=== PATIENT | female | born 1940 | race African-American/Black ===

== ENCOUNTER 2016-09-05 18:25 | Inpatient (IN) | payer OTHER ==
--- NOTE | 2016-09-05 18:35 | EDPHY ---
H & P Time Seen by Provider: 09/05/16 18:33 HPI/ROS: CHIEF COMPLAINT: Exertional fatigue HISTORY OF PRESENT ILLNESS: This patient is a 76 year old female who presents to the Emergency Department complaining of acute onset exertional SOB beginning this morning. She complains of associated fatigue. She does admit a very mild cough that she attributes to her blood pressure medication. No blood in stool, abdominal, or additional complaints. Denies recent illnesses or infections. She was admitted for similar symptoms in 10/2015 and was diagnosed with ventricular tachycardia at that time. Discharged home on sotalol. Medical history also includes prior pulmonary embolus during which she experienced chest pain but does not recall shortness of breath or fatigue. No dizziness or palpitations. REVIEW OF SYSTEMS: Constitutional: +fatigue, no fever, no chills Eyes: No visual changes ENT: No sore throat Respiratory: occasional cough, +shortness of breath Cardiac: No chest pain Gastrointestinal: No nausea, no vomiting, no abdominal pain Genitourinary: No hematuria, no dysuria Musculoskeletal: +hip pain, chronic; no leg swelling Skin: No rash Neurological: No headache, no numbness, no weakness Psychiatric: No depression Past Medical/Surgical History: Breast cancer with right-sided mastectomy. Pulmonary embolus. Ventricular tachycardia (10/2015). Hypertension. Social History: ; is out of town. Smoking Status: Never smoked Physical Exam: General Appearance: Alert, pleasant Eyes: Pupils equal and round, no conjunctival pallor or injection ENT, Mouth: Mucous membranes moist Neck: Normal inspection Respiratory: Lungs are clear to auscultation Cardiovascular: Regular rate and rhythm Gastrointestinal: Abdomen is soft and non-tender Neurological: A&O, nonfocal exam Skin: Warm and dry, no rash Extremities: Nontender, no pedal edema Psychiatric: Mood and affect normal Constitutional: Initial Vital Signs Temperature (C) 36.9 C 09/05/16 18:38 Heart Rate 69 09/05/16 18:38 Respiratory Rate 16 09/05/16 18:38 Blood Pressure 171/93 H 09/05/16 18:38 O2 Sat (%) 92 09/05/16 18:38 O2 Delivery Mode Room Air O2 (L/minute) 2 Allergies/Adverse Reactions: bee sting Allergy (Uncoded 09/05/16 18:34) Home Medications: Medication Instructions Recorded Herbals/Supplements -Info Only 1 ea PO DAILY 08/05/15 Potassium Cl [Klor-Con 20 meq (*)] 20 meq PO DAILY #30 tab 08/06/15 amLODIPine BESYLATE [Norvasc 10 mg 10 mg PO DAILY #30 tab 08/06/15 (*)] Ascorbic Acid [Vitamin C 500 mg 1,000 mg PO DAILY 10/14/15 (*)] Cholecalciferol (Vitamin D3) 5,000 unit PO DAILY 10/14/15 [Vitamin D3] Vitamin B Complex [B-100 Complex] 1 tab PO DAILY 10/14/15 Lisinopril 10 mg PO DAILY #30 tablet 10/20/15 Ranitidine HCl [Zantac] 150 mg PO BID PRN 09/05/16 Amiodarone HCl [Pacerone (*)] 400 mg PO BID #60 tab 09/07/16 Medical Decision Making - Diagnostics EKG Interpretation: []: EKG interpreted by me reveals: sinus rhythm with runs of ventricular tachycardia, rate 143. 1914: Repeat EKG post amiodarone administration reveals normal sinus rhythm. Imaging: Study: CTA of the chest Indication: Exertional dyspnea, history of PE Results: CT angiogram of the chest was obtained. The results of the study are: negative for PE. The study was read by the radiologist, Dr. Medhat Goldberg. I viewed the images myself on the PACS system. ED Course/Re-evaluation: This pt presents with hypoxia and exertional SOB. Concerning for ACS, PE, pneumonia. Initial VS normal except mildly hypoxemic at 90-92%. Will proceed with labs, EKG, and CTA of the chest. 190: court monitor: ventricular tachycardia. Pt asymptomatic, VS stable. Amiodarone 150mg IV ordered. I reviewed prior medical records which include history of ventricular tachycardia for which the patient was admitted last October. Plan for consultation with cardiology. 190: Began administration of 150mg amiodarone. 1911: Heart rate has returned to 78-80. Repeat EKG obtained. Amiodarone drip initiated. [facility] paged. 1918: Consultation with Dr. Evan Downs, cardiology, who will consult on this pt. 1928: Consultation with Dr. Camden Brito, hospitalist, who accepts admission. 2007: Brief run of VT subsided on its own in under one minute. 2015: CT results reported to me by Dr. Medhat Goldberg. Pt to ICU in stabilized condition. This pt utilized 35 minutes of critical care time by me exclusive of unbundled procedures. Organ at risk: heart Differential Diagnosis: includes though not limited to ACS, PE, pneumonia, pulmonary edema, ventricular fibrillation - Data Points Laboratory Results: Laboratory Results 09/05/16 18:55 09/05/16 18:55 Medications Given: Discontinued Medications Amiodarone HCl (Amiodarone Hcl) 150 mg IV EDNOW ONE Stop: 09/05/16 19:15 Last Admin: 09/05/16 19:05 Dose: 150 mg Amiodarone HCl (Amiodarone Hcl) 400 mg PO BID ERIKA Stop: 03/06/17 08:59 Last Admin: 09/07/16 08:13 Dose: 400 mg Amlodipine Besylate (Norvasc) 10 mg PO DAILY ERIKA Stop: 03/05/17 08:59 Last Admin: 09/07/16 08:12 Dose: 10 mg Ascorbic Acid (Vitamin C) 1,000 mg PO DAILY ERIKA Stop: 03/05/17 08:59 Last Admin: 09/07/16 08:09 Dose: 1,000 mg Cholecalciferol (Vitamin D) 5,000 units PO DAILY ERIKA Stop: 03/05/17 08:59 Last Admin: 09/07/16 08:10 Dose: 5,000 units Enoxaparin Sodium (Lovenox) 40 mg SC DAILY ERIKA Stop: 03/05/17 08:59 Last Admin: 09/07/16 08:08 Dose: 40 mg Amiodarone HCl (Amiodarone Hcl) 100 mls @ 600 mls/hr IV ONCE ONE Stop: 09/05/16 19:22 Last Admin: 09/05/16 19:14 Dose: Not Given Amiodarone HCl (Amiodarone Hcl) 200 mls @ 33.333 mls/hr IV ONCE ONE Stop: 09/06/16 01:22 Last Admin: 09/05/16 19:35 Dose: 200 mls Amiodarone HCl 540 mg/ (Dextrose) 300 mls @ 16.667 mls/hr IV ONCE ONE Stop: 09/06/16 18:59 Last Admin: 09/06/16 00:39 Dose: 300 mls Lisinopril (Zestril) 10 mg PO DAILY ERIKA Stop: 03/05/17 08:59 Last Admin: 09/07/16 08:09 Dose: 10 mg Lorazepam (Ativan) 0.5 - 1 mg PO Q4HRS PRN PRN Reason: Anxiety, Able to Take PO Stop: 03/04/17 20:59 Last Admin: 09/07/16 02:21 Dose: 1 mg Pantoprazole Sodium (Protonix) 40 mg PO DAILY ERIKA Stop: 03/04/17 20:59 Last Admin: 09/07/16 08:09 Dose: 40 mg Potassium Chloride (Klor-Con) 20 meq PO DAILY ERIKA Stop: 03/05/17 08:59 Last Admin: 09/07/16 08:09 Dose: 20 meq Vitamin B Complex (Vitamin B Complex) 1 ea PO DAILY ERIKA Stop: 03/05/17 08:59 Last Admin: 09/07/16 08:09 Dose: 1 ea Departure - Departure Disposition: [facility] Inpatient Acute Clinical Impression: Ventricular tachycardia (paroxysmal) Condition: Serious Report Scribed for: Linda Root Report Scribed by: Macey Núñez Date of Report: 09/05/16 Time of Report: 18:34 Physician Review and Approval Statement: 09/05/16 18:34 Portions of this note were transcribed by a medical information specialist. I personally performed a history, physical exam, medical decision making, and confirmed accuracy of information the transcribed note.
[2016-09-05] MEDS ORDERED: AMIODARONE HCL 150 MG/3 ML VIAL ONE (19:01)
[2016-09-05] MEDS ORDERED: AMIODARONE HCL 300 MG in D5W 100 ML IV ONE ×2 (19:04→19:05)
[2016-09-05] MEDS: AMIODARONE HCL 150 MG/3 ML VIAL IV ONE (19:05)
[2016-09-05] MEDS ORDERED: AMIODARONE HCL 200 ML IV ONE ×3 (19:05→21:04)
[2016-09-05 19:08] LABS: % IMMATURE GRANULYOCYTES 0.3 % (0.0-1.1); ABSOLUTE IMMATURE GRANULOCYTES 0.02 10^3/uL (0.00-0.10); ADD DIFF? NO; ADD MORPH? NO; ADD SCAN? NO; ATYPICAL LYMPHOCYTE FLAG 10 (0-99); FRAGMENT RBC FLAG 0 (0-99); HEMATOCRIT 45.4 % (38.0-47.0); HEMOGLOBIN 15.8 g/dL (12.6-16.3); LEFT SHIFT FLG 0 (0-99); LIPEMIA HEMOLYSIS FLAG 90 (0-99); MEAN CELL HEMOGLOBIN CONCENTR. 34.8 g/dL (32.4-36.7); MEAN CELL VOLUME 89.2 fL (81.5-99.8); MEAN PLATELET VOLUME 10.2 fL (8.7-11.7); PLATELET CLUMPS FLAG 10 (0-99); PLATELET COUNT 240 10^3/uL (150-400); RED BLOOD CELL COUNT 5.09 10^6/uL (4.18-5.33)
--- NOTE | 2016-09-05 19:08 | CPEKG ---
Heart Rate: 143 RR Interval: 420 QRSD Interval: 128 QT Interval: 360 QTC Interval: 555 QRS [place]: 98 T Wave [place]: -74 EKG Severity - ABNORMAL ECG - EKG Impression: probable sinus rhythm with runs of ventricular tachycardia Electronically Signed By: Linda Root 05-Sep-2016 23:01:57
[2016-09-05] MEDS ORDERED: AMIODARONE HCL 100 ML IV ONE (19:13)
[2016-09-05 19:21] LABS: ANION GAP 12 mEq/L (8-16); CALCIUM 9.7 mg/dL (8.5-10.4); CARBON DIOXIDE 23 mEq/l (22-31); CHLORIDE 106 mEq/L (97-110); CREATININE 0.5 mg/dL (0.6-1.0); GLOMERULAR FILTRATION RATE > 60; GLUCOSE 97 mg/dL (70-100); POTASSIUM 3.8 mEq/L (3.5-5.2); SODIUM 141 mEq/L (134-144)
[2016-09-05] MEDS ORDERED: IOPAMIDOL (ISOVUE 370) 100 ML BTL IV ONE (19:28)
[2016-09-05 19:33] LABS: TROPONIN I < 0.012 ng/mL (0-0.034)
[2016-09-05] MEDS ORDERED: NS 1,000 ML IV SCH (21:00)
[2016-09-05] MEDS ORDERED: ACETAMINOPHEN 325 MG TAB PO PRN (21:00)
[2016-09-05] MEDS ORDERED: LORazepam 0.5 MG TAB PO PRN (21:00)
[2016-09-05] MEDS ORDERED: LORazepam 2 MG/ML INJ IVP PRN (21:00)
[2016-09-05] MEDS ORDERED: FAMOTIDINE 20 MG TAB PO PRN (21:13)
[2016-09-05] MEDS: PANTOPRAZOLE SODIUM 40 MG TAB PO SCH (21:22)
--- NOTE | 2016-09-05 23:37 | GHP ---
[f rep st] HISTORY AND PHYSICAL DATE OF ADMISSION: 09/05/2016 CHIEF COMPLAINT: Fatigue. HISTORY: This is a 76-year-old female, who has a past medical history of VT who presents from home with complaints of acute onset of generalized fatigue and malaise. She notes this is very similar t o what she experienced the last time she was in VT. She notes it is worse with exertion and has lev e associated shortness of breath. She initially did not have any chest pain but since arrival in e emergency department, has developed some mild substernal chest pain which she rates as about a 2/1 0. At the time of her last hospitalization, she did feel as if she might lose consciousness but did not do so, and denies that she has had any of those symptoms during this hospitalization so far. S he denies palpitations. She has not had fevers, chills or abdominal pain recently. PAST MEDICAL HISTORY: 1. Includes paroxysmal VT. 2. Breast cancer. 3. Hypertension. 4. Chronic low back pain. 5. PE. 6. Sarcoidosis. PAST SURGICAL HISTORY: 1. Mastectomy. 2. Knee surgery. FAMILY HISTORY: This was reviewed and is noncontributory. SOCIAL HISTORY: The patient denies tobacco use. She drinks occasionally. She lives independently. MEDICATIONS: Include: 1. Amlodipine. 2. Vitamin D. 3. Ranitidine. 4. Potassium. 5. Lisinopril. 6. Cholecalciferol. 7. Ascorbic acid. ALLERGIES: None. PHYSICAL EXAM: VITAL SIGNS: BP 138/72, heart rate 56, respiratory rate 14, O2 sats 97% on 2 L. Te mperature is 37. GENERAL APPEARANCE: This is an female, she is awake and alert. She is in no acute distress. EYES: Anicteric. HENT: Oropharynx clear. CARDIOVASCULAR: At the t ney my evaluation, she is with a regular rate and rhythm. No murmurs, rubs, or gallops. No lower e xtremity edema. PULMONARY: CTA bilaterally, normal work of breathing. ABDOMEN: Soft, nontender, nondistended. EXTREMITIES: No clubbing, cyanosis, or edema. SKIN: Warm, dry, well perfused. ELI RO/PSYCH: Oriented, appropriate. CLINICAL DATA: Labs reviewed, significant for white blood cell count 7.95. Chemistry unremarkable. Troponins less than 0.012. Chest and thorax CT angiogram reviewed and interpreted independently by myself shows no clear PE, no aortic aneurysm or dissection. Mild bronchitis without pneumonia. EKG reviewed and interpreted independently by myself shows VT versus atrial fibrillation with VPCs a nd nonspecific intraventricular conduction delay. On personal review of telemetry strips, the patie nt was having intermittent runs of VT interspersed with sinus rhythm with a rate in the 60s. ASSESSMENT/PLAN: This is a 76-year-old female with past medical history of ventricular tachycardia, presenting with what appears to be likely recurrent paroxysmal ventricular tachycardia. 1. Ventricular tachycardia. Again, this has occurred previously, as well leading to prior hospital ization here. She is followed by Dr. Mason Bowen. She was bolused with amiodarone and started on amiodarone drip, and is largely now back in sinus rhythm. She is very minimally symptomatic. Cardi ology has been consulted and will follow while patient is in the hospital. I will obtain echocardio gram in the morning and trend troponins overnight. 2. Chest pain. This developed shortly after arrival in the intensive care unit. During this episo de, she was having more sustained runs of ventricular tachycardia, though she did remain hemodynamic ally stable and this more sustained run did hilda on the amiodarone drip. She was given IV morphine with significant improvement in her symptoms. We will continue to monitor. As per above. 3. Hypertension, for which she is on lisinopril chronically. Blood pressure has been mildly elevat ed during this hospitalization in the setting of ventricular tachycardia, stress and chest pain. We will resume her home medications and continue to monitor. 4. History of sarcoidosis without any evidence of cardiac sarcoid on cardiac MRI at her last hospit alization. Does not seem as if she has had significant acute issues with this. Her chest and thora x CT angiogram did comment that there was no significant mediastinal, hilar or axillary adenopathy. 5. Disposition: Inpatient status. Given high risk presenting issues, she will require close monit oring in the intensive care unit overnight. 6. Code status is full. 7. Patient is new to my care. Old records reviewed. Summary is as per HPI and past medical histor y. Care plan reviewed with ER physician, including plans for amiodarone drip. /[id number]/MODL
[2016-09-06] MEDS ORDERED: AMIODARONE HCL 540 MG in D5W 300 ML IV ONE (01:00)
[2016-09-06 06:10] LABS: COLOR YELLOW; LEUKOCYTE ESTERASE,URINE NEGATIVE (NEGATIVE); NITRITE,URINE NEGATIVE (NEGATIVE)
[2016-09-06 06:22] LABS: % IMMATURE GRANULYOCYTES 0.5 % (0.0-1.1); ABSOLUTE IMMATURE GRANULOCYTES 0.04 10^3/uL (0.00-0.10); ADD DIFF? NO; ADD MORPH? NO; ADD SCAN? NO; ATYPICAL LYMPHOCYTE FLAG 10 (0-99); FRAGMENT RBC FLAG 0 (0-99); HEMOGLOBIN 14.4 g/dL (12.6-16.3); LEFT SHIFT FLG 0 (0-99); LIPEMIA HEMOLYSIS FLAG 90 (0-99); MEAN CELL HEMOGLOBIN 31.4 pg (27.9-34.1); MEAN CELL HEMOGLOBIN CONCENTR. 35.1 g/dL (32.4-36.7); MEAN CELL VOLUME 89.5 fL (81.5-99.8); MEAN PLATELET VOLUME 10.3 fL (8.7-11.7); PLATELET CLUMPS FLAG 0 (0-99); PLATELET COUNT 216 10^3/uL (150-400); RED BLOOD CELL COUNT 4.58 10^6/uL (4.18-5.33)
[2016-09-06 07:02] LABS: ANION GAP 8 mEq/L (8-16); CARBON DIOXIDE 26 mEq/l (22-31); CHLORIDE 107 mEq/L (97-110); CREATININE 0.6 mg/dL (0.6-1.0); GLOMERULAR FILTRATION RATE > 60; GLUCOSE 165 mg/dL (70-100); POTASSIUM 3.8 mEq/L (3.5-5.2); SODIUM 141 mEq/L (134-144)
--- NOTE | 2016-09-06 08:03 | CPEKG ---
Heart Rate: 77 RR Interval: 779 P-R Interval: 160 QRSD Interval: 94 QT Interval: 368 QTC Interval: 417 P [place]: 55 QRS [place]: -12 T Wave [place]: 67 EKG Severity - BORDERLINE ECG - EKG Impression: SINUS RHYTHM EKG Impression: PROBABLE LEFT ATRIAL ABNORMALITY Electronically Signed By: Johan Esquivel 07-Sep-2016 12:11:32
--- NOTE | 2016-09-06 11:24 | ECHO ---
[id number] + + [address] : : [place] [address] : : [phone] + + Adult Echocardiographic Report + ---+ :Name: PRADEEPLawanda Date: 09/06/2016 07:38 AM : : Hospital Admission Number: [id number] Location: 247: :: 1940 Gender: Female Height: 63 in : :Age: 76 yrs Race: A Weight: 167 lb : :Reason For Study: VT : : BSA: 1.8 meters2 : + ---+ MMode/2D Measurements \T\ Calculations IVSd: 0.99 cm LVIDd: 4.6 cm FS: 39.7 % Ao root diam: LVPWd: 0.97 cm LVIDs: 2.8 cm EDV(Teich): 3.0 cm 98.8 ml LA dimension: ESV(Teich): 4.0 cm 29.4 ml EF(Teich): 70.3 % LVLd ap4: 7.3 cm SV(MOD-sp4): EDV(MOD-sp4): 38.0 ml 59.0 ml LVLs ap4: 5.9 cm ESV(MOD-sp4): 21.0 ml EF(MOD-sp4): 64.4 % Normal Measurement Values: + + :LVIDd (3.5-5.7cm) IVSd (0.6-1.1cm) LVPWd (0.6-1.1cm) Aortic Root (2.0-3.7cm)Left Atrium (1.5-4.0cm): :LV Vol(d) (76-115ml) LV Vol(s) (29-48ml) Ejec Fraction (50-65%)PV Ankush (0.6- 1.2m/s) TV Ankush (0.4-1.0m/s) : :MV E Ankush (0.8-1.0m/s)MV A Ankush (0.3-1.0m/s)LVOT Ankush (0.7-1.2m/s) Asc Ao Ankush ( 0.9-1.8m/s) : + + Doppler Measurements \T\ Calculations MV E max ankush: 53.3 cm/sec Ao V2 max: 129.0 cm/sec MV A max ankush: 80.5 cm/sec Ao max P.7 mmHg MV E/A: 0.66 Left Ventricle The left ventricle is normal in size. There is normal left ventricular wall thickness. Left ventricular systolic function is normal. Ejection Fraction = 65-70%. No regional wall motion abnormalities noted. Right Ventricle The right ventricle is normal in size and function. Atria The left atrial size is normal. Right atrial size is normal. The interatrial septum is intact with no evidence for an atrial septal defect. Mitral Valve The mitral valve is normal in structure and function. There is no evidence of mitral valve prolapse. There is no mitral valve stenosis. There is mild mitral regurgitation. Tricuspid Valve Normal tricuspid valve. There is trace to mild tricuspid regurgitation. Aortic Valve The aortic valve is trileaflet. The aortic valve opens well. There is no aortic stenosis. Trace aortic regurgitation. Pulmonic Valve The pulmonic valve is normal in structure and function. There is no pulmonic valvular regurgitation. Great Vessels The aortic root is normal size. Pericardium/Pleural There is no pericardial effusion. Conclusion A complete two-dimensional transthoracic echocardiogram was performed (2D, M-mode, Doppler and color flow Doppler). Left ventricular systolic function is normal. Ejection Fraction = 65-70%. There is mild mitral regurgitation. There is trace to mild tricuspid regurgitation. Trace aortic regurgitation. Final Reading Physician: Phong Pride signed on 09/06/2016 11:22 AM Ordering Physician: Camden Brito Performed By: Marlyn Mcleod, KULWINDERCS
[2016-09-06] MEDS ORDERED: REGADENOSON 0.4 MG/5 ML SYR IVP ONE (13:05)
[2016-09-06] MEDS: CHOLECALCIFEROL VIT D3 1,000 UNITS TAB PO SCH (14:45)
[2016-09-06] MEDS: VITAMIN B COMPLEX 1 EA CAP/TAB PO SCH (14:46)
[2016-09-06] MEDS: POTASSIUM CL 20 MEQ TAB PO SCH (14:46)
[2016-09-06] MEDS: ASCORBIC ACID 500 MG TAB PO SCH (14:46)
[2016-09-06] MEDS: LISINOPRIL 10 MG TAB PO SCH (14:47)
[2016-09-06] MEDS: PANTOPRAZOLE SODIUM 40 MG TAB PO SCH (14:47)
[2016-09-06] MEDS: ENOXAPARIN 40 MG/0.4 ML SYR SC SCH (14:48)
--- NOTE | 2016-09-06 15:30 | HOSPPROG ---
Hospitalist Progress Note Assessment/Plan: * Vtach - paroxysmal - now back to NSR -IV amiodarone -d/w Dr. Martinez - patient well know to Dr. Bowen - he will see her today * Chest pain -Lexiscan stress test today * Sarcoidosis -previous cardiac MRI negative for sarcoid involvement * HTN -home lisinopril, norvasc Subjective: no complaints Objective: Vital Signs Temp Pulse Resp BP Pulse Ox 36.8 C 58 L 24 H 121/65 H 95 09/06/16 08:00 09/06/16 14:00 09/06/16 14:00 09/06/16 14:00 09/06/16 14:00 Laboratory Results 09/06/16 06:15 09/06/16 06:15 09/05/16 09/06/16 09/07/16 05:59 05:59 05:59 Intake Total 1290 Output Total 2700 Balance -1410 Tele reviewed - NSR now ECHO: normal EF - Physical Exam Constitutional: no apparent distress, appears nourished, not in pain Cardiovascular: regular rate and rhythym, no murmur, rub, or gallop Respiratory: no respiratory distress, no rales or rhonchi, clear to auscultation Gastrointestinal: normoactive bowel sounds, soft, non-tender abdomen, no palpable masses Skin: no rashes or abrasions, no fluctuance, no induration Neurologic: AAOx3, sensation intact bilaterally Psychiatric: interacting appropriately, not anxious, not encephalopathic, thought process linear ICD10 Worksheet Patient Problems: Problems Problem Status Onset Tachycardia Acute Dyspnea Acute Paroxysmal tachycardia Acute VPC's (ventricular premature complexes) Acute
--- NOTE | 2016-09-06 16:59 | CPIP ---
[f rep st] INVASIVE CARDIAC PROCEDURE DIAGNOSIS: Ventricular tachycardia. PROCEDURE: Nuclear stress test with pharmacologic stress. INDICATIONS: The patient has had chest discomfort thought to be GERD, but it is not clear. She has come to the hospital with nonsustained ventricular tachycardia. She has a history of ventricular tachycardia in the past. Her ejection fraction is normal, her left ventricular chamber dimension is normal, wall thickness is normal, and her troponin levels have been negative since she has been in the hospital. We discussed extensively with her both coronary angiography versus nuclear stress imaging to look fo r ischemic coronary disease that might be causing some of her ventricular arrhythmias. She wanted to go with a noninvasive option, and she has now had a pharmacologic nuclear stress test. RESULTS: Baseline EKG is has nonspecific ST-T changes, and there were no diagnostic changes with th e injection. Nuclear images are pending. COMPLICATIONS: None. I was with the patient throughout the whole test. All her questions have been answered. /[id number]/MODL
[2016-09-07 07:32] VITALS: BP 138/81; PULSE 54; RESP 16; TEMP 97.4; O2SAT 95
[2016-09-07] MEDS: ENOXAPARIN 40 MG/0.4 ML SYR SC SCH (08:08)
[2016-09-07] MEDS: ASCORBIC ACID 500 MG TAB PO SCH (08:09)
[2016-09-07] MEDS: VITAMIN B COMPLEX 1 EA CAP/TAB PO SCH (08:09)
[2016-09-07] MEDS: POTASSIUM CL 20 MEQ TAB PO SCH (08:09)
[2016-09-07] MEDS: PANTOPRAZOLE SODIUM 40 MG TAB PO SCH (08:09)
[2016-09-07] MEDS: LISINOPRIL 10 MG TAB PO SCH (08:09)
[2016-09-07] MEDS: CHOLECALCIFEROL VIT D3 1,000 UNITS TAB PO SCH (08:10)
[2016-09-07] MEDS ORDERED: AMIODARONE HCL 200 MG TAB PO SCH (09:00)
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
--- NOTE | 2016-09-07 14:19 | PDDCSUM ---
Discharge Summary Discharge Summary: DISCHARGE SUMMARY FOLLOW-UP ITEMS: Reduced dosage of amiodarone in the outpatient setting DATE OF ADMISSION: 09/05/2016 DATE OF DISCHARGE: 09/07/2016 DISCHARGE DIAGNOSES: 1. Paroxysmal ventricular tachycardia 2. Acute chest pain 3. Chronic sarcoidosis CONSULTATIONS: Cardiology PROCEDURES / IMAGING: Nuclear medicine stress test demonstrating no inducible ischemia, echocardiogram demonstrating ejection fraction 65-70%, no abnormalities, CT angiogram of the chest demonstrating no evidence of pulmonary embolism CHIEF COMPLAINT: Acute chest pain SUBJECTIVE: Patient is feeling well at time of discharge she is able to ambulate safely PHYSICAL EXAM ON DISCHARGE: Systolic blood pressure is 1/30, afebrile overnight, satting well on room air, heart rhythm is regular, heart rate is regular, lungs are clear to auscultation bilaterally LABS ON DISCHARGE: Troponin negative x3, urinalysis unremarkable HOSPITAL COURSE BY PROBLEM: 1. Paroxysmal ventricular tachycardia. Unclear precipitant, patient is currently back into normal sinus rhythm after receiving IV amiodarone, she will continue on oral amiodarone at a loading dose of 400 mg twice daily and will be reduced to 200 mg twice daily in the outpatient setting by Dr. Bowen. Patient demonstrated no evidence of recurrent V-tach overnight prior to discharge. 2. Acute chest pain. Ruled out for acute coronary syndrome with negative troponin x3, ruled out for obstructive coronary disease with a negative nuclear medicine stress test, ruled out for pulmonary embolism with negative CT angiogram. Most likely secondary to symptomatic ventricular tachycardia and the patient is currently chest pain free now that she is not experiencing the above. 3. Chronic sarcoidosis. Patient has a previous cardiac MRI which is negative for sarcoid involvement. DISCHARGE MEDICATIONS: Please see official discharge medication reconciliation sheet in chart , amiodarone 4 mg twice daily. DISCHARGE INSTRUCTIONS: Follow up with Dr. Bowen in the outpatient setting.
== END 2016-09-07 11:55 | disposition home or self-care (01) | DRG 310 ==
LOC: F2N 20:29 → F2W 09-06 16:38
PROVIDERS: ADMIT Internal Medicine; ATTEND Internal Medicine
DX: I47.2 Ventricular tachycardia (principal); R07.89 Other chest pain; D86.9 Sarcoidosis, unspecified; I10 Essential (primary) hypertension; Z85.3 Personal history of malignant neoplasm of breast; Z86.711 Personal history of pulmonary embolism
CPT/HCPCS: 82947-QW; A9500; J0282; J1650; J2785; Q9967

== ENCOUNTER 2018-10-12 04:00 | Observation (INO) | payer OTHER ==
[2018-10-12 04:32] LABS: PLATELET COUNT 233 10^3/uL (150-400)
--- NOTE | 2018-10-12 04:53 | EDPHY ---
H & P Stated Complaint: chest tightness with L-arm pain, sob, nausea Time Seen by Provider: 10/12/18 04:24 HPI/ROS: Chief Complaint: Chest tightness, shortness of breath HPI: 78-year-old woman with a history of hypertension and "arrhythmia" is presenting complaining of intermittent chest tightness with shortness of breath for the last 2 days. Pain comes on and lasts for about 30 min and goes away. Described in her left central chest. Also some aching in her arm. She has been having intermittent shortness of breath associated with this. No fevers or chills. Does have a cough productive of yellowish sputum. No nausea or vomiting. Some mild dyspnea on exertion. No leg pain or swelling. No recent travel. No pleuritic chest pain. ROS: 10 systems were reviewed and were negative except those elements noted in the HPI. PMH: Hypertension, "arrhythmia" Social History: No smoking, no alcohol, no recreational drug use Family History: non-contributory Physical Exam: Gen: Awake, Alert, No Distress HEENT: Nose: no rhinorrhea Eyes: PERRLA, EOMI Mouth: Moist mucosa Neck: Supple, no JVD Chest: nontender, lungs clear to auscultation Heart: S1, S2 normal, no murmur Abd: Soft, non-tender, no guarding Back: no CVA tenderness, no midline tenderness Ext: no edema, non-tender Skin: no rash Neuro: CN II-XII intact, Sensation grossly intact, Strength 5/5 in bilateral upper and lower extremities - Personal History Current Tetanus Diphtheria and Acellular Pertussis (TDAP): Unsure - Medical/Surgical History Hx Asthma: No Hx Chronic Respiratory Disease: No Hx Diabetes: No Hx Cardiac Disease: Yes Hx Renal Disease: No Hx Cirrhosis: No Hx Alcoholism: No Hx HIV/AIDS: No Hx Splenectomy or Spleen Trauma: No Other PMH: HTN, PE, breast CA with mast r side, FIBROID TUMOR, R rotator cuff repair 08/20/15 - Social History Smoking Status: Never smoked Constitutional: Initial Vital Signs Temperature (C) 36.8 C 10/12/18 04:03 Heart Rate 54 L 10/12/18 04:03 Respiratory Rate 18 10/12/18 04:03 Blood Pressure 179/108 H 10/12/18 04:03 O2 Sat (%) 93 10/12/18 04:03 O2 Delivery Mode Room Air Allergies/Adverse Reactions: bee sting Allergy (Uncoded 09/05/16 18:34) Home Medications: Medication Instructions Recorded Herbals/Supplements -Info Only 1 ea PO DAILY 08/05/15 Potassium Cl [Klor-Con 20 meq (*)] 20 meq PO DAILY #30 tab 08/06/15 amLODIPine BESYLATE [Norvasc 10 mg 10 mg PO DAILY #30 tab 08/06/15 (*)] Ascorbic Acid [Vitamin C 500 mg 1,000 mg PO DAILY 10/14/15 (*)] Cholecalciferol (Vitamin D3) 5,000 unit PO DAILY 10/14/15 [Vitamin D3] Vitamin B Complex [B-100 Complex] 1 tab PO DAILY 10/14/15 Lisinopril 10 mg PO DAILY #30 tablet 10/20/15 Ranitidine HCl [Zantac] 150 mg PO BID PRN 09/05/16 Amiodarone HCl [Pacerone (*)] 400 mg PO BID #60 tab 09/07/16 Medical Decision Making - Diagnostics EKG Interpretation: ECG time 4:16 a.m., sinus rhythm with a rate of 53, normal axis, normal intervals, no acute ischemic changes. ED Course/Re-evaluation: 78-year-old woman presenting with intermittent chest tightness for the last 2 days. She has a heart score of four given her age, risk factors and history. Initial troponin and ECG are normal. Will admit for cardiac rule out and risk stratification. - Data Points Laboratory Results: Laboratory Results 10/12/18 04:15 10/12/18 04:15 10/12/18 10/12/18 10/12/18 04:21 04:15 04:15 WBC 8.48 10^3/uL 10^3/uL (3.80-9.50) RBC 5.01 10^6/uL 10^6/uL (4.18-5.33) Hgb 15.5 g/dL g/dL (12.6-16.3) Hct 46.3 % % (38.0-47.0) MCV 92.4 fL fL (81.5-99.8) MCH 30.9 pg pg (27.9-34.1) MCHC 33.5 g/dL g/dL (32.4-36.7) RDW 12.9 % % (11.5-15.2) Plt Count 233 10^3/uL 10^3/uL (150-400) MPV 10.4 fL fL (8.7-11.7) Neut % (Auto) 67.6 % % (39.3-74.2) Lymph % (Auto) 19.7 % % (15.0-45.0) [place] % (Auto) 9.9 % % (4.5-13.0) Eos % (Auto) 1.9 % % (0.6-7.6) Baso % (Auto) 0.5 % % (0.3-1.7) Nucleat RBC Rel Count 0.0 % % (0.0-0.2) Absolute Neuts (auto) 5.74 10^3/uL 10^3/uL (1.70-6.50) Absolute Lymphs (auto) 1.67 10^3/uL 10^3/uL (1.00-3.00) Absolute Monos (auto) 0.84 10^3/uL H 10^3/uL (0.30-0.80) Absolute Eos (auto) 0.16 10^3/uL 10^3/uL (0.03-0.40) Absolute Basos (auto) 0.04 10^3/uL 10^3/uL (0.02-0.10) Absolute Nucleated RBC 0.00 10^3/uL 10^3/uL (0-0.01) Immature Gran % 0.4 % % (0.0-1.1) Immature Gran # 0.03 10^3/uL 10^3/uL (0.00-0.10) Sodium 143 mEq/L mEq/L (135-145) Potassium 3.7 mEq/L mEq/L (3.5-5.2) Chloride 105 mEq/L mEq/L (97-110) Carbon Dioxide 28 mEq/l mEq/l (22-31) Anion Gap 10 mEq/L mEq/L (6-14) BUN 13 mg/dL mg/dL (7-23) Creatinine 0.6 mg/dL mg/dL (0.6-1.0) Estimated GFR > 60 Glucose 121 mg/dL H mg/dL (70-100) Calcium 9.8 mg/dL mg/dL (8.5-10.4) POC Troponin I 0.00 ng/mL ng/mL (0.00-0.08) Point of Care Test Results: Chemistry 10/12/18 04:21 POC Troponin I 0.00 ng/mL ng/mL (0.00-0.08) Departure - Departure Disposition: [facility] Inpatient Acute Clinical Impression: Chest pain, Dyspnea Condition: Fair Referrals: RUTHIE HERNANDEZ [Primary Care Provider] - As per Instructions
--- NOTE | 2018-10-12 05:58 | CPEKG ---
Test Reason : OPEN Blood Pressure : / mmHG Vent. Rate : 053 BPM Atrial Rate : 054 BPM P-R Int : 153 ms QRS Dur : 087 ms QT Int : 444 ms P-R-T Axes : -09 024 055 degrees QTc Int : 417 ms Sinus rhythm Confirmed by Tomer Marshall ([id number]) on 10/12/2018 5:57:23 AM Referred By: PHYSICIAN ED Confirmed By:Tomer Marshall
[2018-10-12] MEDS ORDERED: ONDANSETRON DISINTEGRATING 4 MG TAB PO PRN (06:19)
[2018-10-12] MEDS ORDERED: ONDANSETRON 4 MG/2 ML VIAL IVP PRN (06:19)
[2018-10-12] MEDS ORDERED: ACETAMINOPHEN 325 MG TAB PO PRN (06:19)
[2018-10-12] MEDS ORDERED: HYDROCODONE/APAP 5/325 TAB PO PRN (06:19)
[2018-10-12] MEDS ORDERED: NITROGLYCERIN 0.4 MG BTL SL PRN (06:22)
[2018-10-12] MEDS ORDERED: ASPIRIN 325 MG TAB PO PRN (08:25)
[2018-10-12] MEDS ORDERED: METOCLOPRAMIDE 5 MG TAB PO PRN (08:25)
[2018-10-12] MEDS ORDERED: TEARS/DEXTRAN 70/HYPROMELLOSE 15 ML OPHT.BTL EACHEYE PRN (08:25)
[2018-10-12] MEDS ORDERED: POTASSIUM CL 20 MEQ TAB PO SCH (09:00)
[2018-10-12] MEDS ORDERED: HYDROCHLOROTHIAZIDE 25 MG TAB PO SCH (09:00)
--- NOTE | 2018-10-12 09:29 | GHP ---
[f rep st] HISTORY AND PHYSICAL DATE OF ADMISSION: 10/12/2018 CHIEF COMPLAINT: Chest pain. HISTORY OF PRESENT ILLNESS: 78-year-old female with history of ventricular tachycardia who presents with chest pain. History is notable for being followed by electrophysiology for ventricular tachycar carmencita. She is currently not undergoing any treatment for it. Ablation as well as sotalol loading have been discussed. Over the past month or 2 she has noted significantly decreased exercise tolerance and more fatigue. She notes that often times during her episodes of fatigue she checks her pulse and it drops down to t he 30s. Her fatigue does not 100% correlate with her bradycardia; however, she had a ZIO patch order ed by her outpatient physician which she just recently took off. She has not heard any results from that yet. She has been monitored with outpatient EKG monitoring by Cardiology here which has shown e pisodes of ventricular tachycardia but no bradycardia reported. She had a nuclear stress test 1 year ago which was negative. She had a catheterization in 2016 which was negative. She presents today with left-sided chest pressure. It is somewhat exertional in nature though not 10 0% triggered by exertion. It does seem to be relieved with rest. She presented to the ED today linda use she woke up with it and also had left arm pain. PAST MEDICAL/SURGICAL HISTORY: 1. History of ventricular tachycardia, as above. 2. Breast cancer. 3. History of pulmonary embolism. 4. Low back pain. 5. Sarcoid. MEDICATIONS: Please see medication reconciliation. ALLERGIES: No known drug allergies. FAMILY HISTORY: Reviewed, noncontributory. SOCIAL HISTORY: She drinks 1-2 small drinks a night. She quit smoking. REVIEW OF SYSTEMS: A 10-point review of systems is conducted and is negative except per HPI. PHYSICAL EXAM: VITAL SIGNS: Blood pressure 154/87, heart rate 53, respiration rate 14, saturating 9 5% on room air. Temperature 36.5. GENERAL: The patient is a very pleasant female who is resting co mfortably. No acute distress. HEENT: Shows her to be normocephalic, atraumatic. CARDIOVASCULAR: Shows a regular rate and rhythm. No murmurs, rubs, or gallops. PULMONARY: Lungs clear to auscultat ion bilaterally. ABDOMEN: Soft, nontender, nondistended. SKIN: Shows no rash. : Shows no Fole y. NEUROLOGIC: Shows her to be alert and oriented x3. She is moving all extremities. PSYCHIATRIC: Shows normal mood and affect. LABS: CBC is normal. Metabolic panel is normal. Troponins x2 are negative. DATA: 1. I discussed with Venkata Ogden, he will consult. 2. I personally viewed and interpreted her EKG. This shows sinus rhythm. She has 2 inversions in l kassandra V1 and V2. 3. I personally viewed and interpreted her chest x-ray. This shows normal heart silhouette. There is nothing acute. IMPRESSION AND PLAN: 1. Chest pain: Agree with exercise with nuclear imaging. I have ordered this. This is per Cardiol daxa's recommendation which I think is appropriate given her complicated arrhythmia history as opposed to an exercise treadmill with EKG. Her enzymes x2 have been negative. 2. Reported bradycardia. We will monitor her on telemetry to see if this correlates with any sympto ms of fatigue while she is here. She may need ongoing outpatient EKG monitoring. 3. History of ventricular tachycardia. We will continue to monitor her on telemetry. Cardiology spencer s been consulted. We will see if she has any recurrent episodes here. /[id number]/MODL
[2018-10-12] MEDS ORDERED: REGADENOSON 0.4 MG/5 ML SYR IVP ONE (10:18)
[2018-10-12 11:05] VITALS: BP 171/80
--- NOTE | 2018-10-12 15:07 | ASMTCMCOM ---
CM Note CM Note Notes: CM discussed case in tx rounds. Pt is a 78 y/o female admitted for chest pain and shortness of breath. Per hospitalist, pt is independent without any needs. No therapies ordered at this time. CM available for changes. Plan: Independent Date Signed: 10/12/2018 03:06 PM Electronically Signed By:RONNY Chung
[2018-10-12] MEDS ORDERED: IOPAMIDOL (ISOVUE 370) 100 ML BTL IV ONE (15:37)
--- NOTE | 2018-10-12 17:06 | GDS ---
[f rep st] DISCHARGE SUMMARY FINAL DIAGNOSES: 1. Reported bradycardia. 2. Left-sided chest pain. 3. History of ventricular tachycardia. 4. History of a pulmonary embolus. 5. History of breast cancer. HOSPITAL COURSE: This is a 78-year-old female who presented with left-sided chest pain. She also co mplained of bradycardia that she had witnessed at home. She also has a history of ventricular tachyc ardia. Cardiology was consulted. She had a stress test with nuclear imaging which showed no evidenc e of ischemia. Given her history of a pulmonary embolus, she had a CT angiogram which was negative f or pulmonary embolus. She was monitored on telemetry which showed frequent ventricular ectopy which has been known. She has been followed by Dr. Henson. Chest pain does not appear to be cardiac in natur e, it may be GI. Her bradycardia that she reports at home may be due to bigeminy which has been witn essed here relatively frequently, which can account for non-perfusing beats. She has no more concern ing symptoms including syncope associated with this, just some fatigue. She has a followup appointme nt with Dr. Henson 3 days after discharge. She had a recent Zio patch. We have requested the records f or this; however, we have not received those at the time of her discharge. She is otherwise discharg ed in stable condition with followup with Dr. Henson. /[id number]/MODL
--- NOTE | 2018-10-12 19:51 | GCON ---
[f rep st] CONSULTATION CARDIOLOGY CONSULTATION INDICATION FOR CARDIOLOGY CONSULTATION: New onset of chest pressure, with history of nonsustained VT . REQUESTING PHYSICIAN FOR CONSULTATION: Dr. Keyes of hospital services. HISTORY OF PRESENT ILLNESS: The patient is a 78-year-old female who is known to our practice. She i s followed by Dr. Henson of Electrophysiology. She has significant history of monomorphic ventricular t achycardia, breast cancer, and hypertension. She states over the last 2 months she has been noticing more fatigue, worsening in the last 2 weeks. She does state that she has been noticing with her pul se of having episodes of bradycardia with rates down to the 30s, she does state that she has had a re cent Zio Patch ordered by her PCP in the outpatient setting, which was taken off approximately 7 days ago. She was planning to see cardiology at [facility] in approximately a week to discuss results. S he does state that over the last week she has been feeling her typical usual fatigue, with no new sym ptoms. Reporting no fevers, chills, or night sweats. But, last night, waking up at approximately 1: 30 in which she developed a midsternal chest pressure, as what she describes as tightness, rating ini tially as a 7/10. This was associated with shortness of breath, but denies of any diaphoresis or ceasar sea. She waited for approximately 30 minutes to see if the symptoms resolved, in which they did not, and woke her came to [facility] emergency department for further evaluatio n. Upon arrival, electrocardiogram was done, which noted to be sinus rhythm, with no significant ST or T-wave abnormalities. Ventricular rate was 53 BPM. A chest x-ray was also done which showed no a cute cardiopulmonary process. Laboratory studies drawn initially in the ER was 0.00, repeated later on to be less than 0.012. She reports upon arrival most of her chest pressure had dissipated, but sh e continues to feel fatigued. She was placed on PCU and there she has been on continuous cardiac mon itoring, which has noted sinus rhythm, sinus akhil with no pauses noted. Was noted around 9:30 this morning of having episode of bigeminal PVCs that lasted for approximately 15 seconds. She reports no orthopnea, PND, edema, recent weight gain, near-syncope or syncopal events. She reports no symptoms suggestive of TIA or CVA. She has significant cardiac risk factors that include age, hypertension, previous smoker. PAST MEDICAL HISTORY: Includes: 1. History of ventricular tachycardia. 2. Breast cancer which was treated in the 80s. 3. History of PE. 4. Lower back pain. 5. Sarcoidosis. 6. Hypertension. PAST SURGICAL HISTORY: Includes: 1. Knee replacement. 2. Bilateral mastectomies. FAMILY HISTORY: Noncontributory. SOCIAL HISTORY: She is a previous smoker who quit greater than 30 years ago. She drinks 1-2 small d rinks a night. She is a retired boiler welder. She is . She has no children. ALLERGIES: No known drug allergies. MEDICATIONS: At home, Natural Balance tears 1 drop each eye q.2 p.r.n., multivitamin 1 tablet p.o. d aily, hydrochlorothiazide 25 mg p.o. daily, aspirin 325 mg p.o. daily p.r.n., Reglan 10 mg p.o. h.s. p.r.n., amlodipine 2.5 mg p.o. daily, potassium chloride 20 mEq p.o. daily. REVIEW OF SYSTEMS: A 10-point review of systems done on this patient all negative except as mentione d above. PHYSICAL EXAMINATION: GENERAL APPEARANCE: Medium built, mildly obese, female. She is alert and oriented to person, place, time, situation. Appears to be under no acute distress at t his time. CURRENT VITAL SIGNS: Blood pressure 171/80, heart rate 53 sinus rhythm on the monitor wit h occasional PVC and 1 noted couplet bigeminy as mentioned above. Respirations 16. Saturating 94% o n room air. Temperature 36.8 degrees Celsius. HEENT: Head is normocephalic. Lips and tongue are p ink and moist with no signs of cyanosis. Conjunctivae pink. NECK: Trachea is midline, +2 carotid p ulses bilateral. No auscultated bruits. No jugular vein distention. RESPIRATORY: Lungs are clear to auscultation. No rhonchi, rales, or wheezes. No accessory muscle use, no intercostal muscle retr action noted. CARDIAC: Regular rate, regular rhythm. S1 and S2. No S3, S4, gallops, rubs, or murm urs noted. ABDOMEN: Soft, nontender. Bowel sounds x4 quadrants. No organomegaly, no palpable mass es. SKIN: Warm and dry, no cyanosis, no clubbing, no peripheral edema. VASCULAR: +2 carotids bila teral, +2 radials bilateral, +1 dorsal pedal and posterior tibial pulses bilateral. LABORATORY STUDIES: Drawn today show WBC of 8.48, hemoglobin of 15.5, hematocrit of 46.3, platelet c ount of 233. Sodium 143, potassium 3.7, chloride 105, CO2 28, BUN 13, creatinine 0.6, glucose 121, c alcium 9.8. Troponin on admission was 0.00. Troponin done at 7:58 a.m. this morning was less than 0 .012. DIAGNOSTIC STUDIES: Electrocardiogram as mentioned above. Chest x-ray as mentioned above. Previous studies: The patient had a left heart cath October 16, 2015, which showed normal coronary arteri es, normal LVEF. Sarai MPI study done on 10/09/2017 showing zero ischemia, normal LVEF with normal LV function with EF of 64%. Most recent echocardiogram was done September 06, 2016 showing normal LV size and function, EF of 65% to 70% with no wall motion abnormalities. Mild MR, mild TR, trace AI. Thirt y day monitor done on 10/18/2017 showing minimum heart rate of 44 beats per minute, maximum heart rat e 141 beats per minute, and average heart rate 65 BPM. Patient was noted to have a 4% PVC burden wit h sinus rhythm with frequent episodes of nonsustained VT. ASSESSMENT AND PLAN: 1. Chest pain: Patient with reporting new onset of chest pressure last night waking her up with ass ociated symptoms of shortness of breath. EKG with no acute ST or T-wave abnormalities suggesting of ischemia. Negative troponins x2. The patient does have significant cardiac risk factors that includ e age, hypertension, and previous smoker. At this time, it was felt best for further evaluation for ischemia for her to undergo stress testing. We will schedule for an ETT MPI study today. The patien t has been given aspirin in the ER upon admission. 2. History of nonsustained ventricular tachycardiac: Patient has known history of nonsustained VT d iagnosed off Holter monitoring in the past. She has been seen previously by electronics inspector, Dr. Bowen, and more recently, Dr. Henson on July 16, 2018. She has been noted to be on amiodarone and me toprolol. She did not want to stay on amiodarone due to potential side effects and could not tolerat e metoprolol. She has also had previous cardiac MRI which was unrevealing. When Dr. Henson saw her rec ently and offered her to attempt sotalol loading, versus coming in for an electrophysiology study and , if necessary, an ablation, the patient informs me she was scared of both and had not followed up as of this time. We have rediscussed this again today and she would like to consider more. She has no t been noted to have any runs of VT during her hospitalization. Laboratory studies have noted potass ium to be at 3.7. I will have them draw magnesium off her a.m. labs to ensure they are within normal limits. Stress testing as mentioned above. 3. Hypertension: Patient with noted history of hypertension, noted to be more elevated today. She does report she is anxious. She has been resumed on home medication of amlodipine and hydrochlorothi azide. Potentially, we may adjust, we will evaluate after stress testing. 4. Patient stating history of episodes of bradycardia with fatigue symptoms. No significant bradyca rdia has been noted during her hospitalization. She does report she has had a recent Zio monitor don e at her PCP's office and is uncertain of the results. I have asked our nursing staff to see if we c an get the records for evaluation. The patient has been noted to have episodes of bigeminy and PVCs during hospitalization, which potentially could be the cause of her feeling a bradycardic pulse with symptoms. We will continue to monitor on telemetry. Thank you for this consultation. We will be glad to follow along with you. /[id number]/MODL
--- NOTE | 2018-10-13 01:32 | CPR ---
[f rep st] NONINVASIVE CARDIAC PROCEDURE REPORT Exercise Treadmill MPI Study. SUPERVISING CUSTOMER SUPPORT ASSOCIATE: Jasper Rodriguez MD. INDICATION FOR PROCEDURE: INDICATION FOR PROCEDURE: Episode of chest pressure with shortness of breath this morning, with noted history of frequent PVCs and nonsustained VT. PRE: After obtaining informed consent, initial EKG done, showing sinus rhythm at a ventricular rate of 56 BPM, noted inverted T-waves in aVL, no other significant ST or T-wave abnormalities. One premature atrial contraction noted. STRESS: Patient placed on exercise treadmill following standard due protocol, with the following findings: 1. Patient exercised for 3 minutes 19 seconds. 2. Patient obtained a heart rate of 145 beats per minute, which was 101% of MPHR. 3. 4.6 METS. 4. Patient had no chest pain, but did report significant shortness of breath at peak exercise. 5. No significant ST shift at peak exercise, suggesting of ischemia. 6. Patient was noted to have occasional PVC with exercise, more frequent PVCs during recovery phase. 7. No other malignant arrhythmias or pauses noted. 8. BP response at rest 138/84, maximum 190/90. 9. Patient did note to drop SpO2 down to 87% at maximum effort. 10. Testing was stopped due to maximum effort. 11. Ryan treadmill score of 3, placing her at intermediate risk. RECOVERY: The patient recovered for 5 minutes. She was noted to have more frequent PVCs, appeared to be unifocal in origin. No other malignant arrhythmias or pauses were noted. Within 5 minutes of recovery, the patient's blood pressure returned back to baseline, heart rate back to baseline, reporting no chest pain or shortness of breath. She was taken to Nuclear Medicine for finishing post-stress imaging pictures. /[id number]/MODL MTDD
== END 2018-10-12 17:20 | disposition home or self-care (01) ==
LOC: F2W 05:47
PROVIDERS: ADMIT Family Medicine; ATTEND Student in an Organized Health Care Education/Training Program
DX: R07.89 Other chest pain (principal); R00.8 Other abnormalities of heart beat; I49.3 Ventricular premature depolarization; Z86.711 Personal history of pulmonary embolism; D86.0 Sarcoidosis of lung; Z85.3 Personal history of malignant neoplasm of breast; Z90.11 Acquired absence of right breast and nipple; Z87.891 Personal history of nicotine dependence; Z96.659 Presence of unspecified artificial knee joint
CPT/HCPCS: 71046; 71275; 78452; 93005; 93017; 99285; A9500; G0378; 84484-ER; J2785; Q9967